=== PATIENT | male | born 1940 | race Caucasian/White ===

== ENCOUNTER → 2016-10-27 | Outpatient (CLI) | payer OTHER, MEDICAID ==
--- NOTE | 2016-10-27 13:34 | DX ---
Chest, Two Views 1142 hours October 27, 2016 History: Cough, fever, asthma , previous coronary artery bypass. 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 Comparison: January 2016. Findings: Cardiac silhouette is within normal range. Median sternotomy wires and mediastinal clips fr om prior coronary artery bypass. Left hilar mediastinal clips with elevated left hemidiaphragm and mi nimal scarring in the left lower lobe from previous left upper lobectomy. No definite evidence of def inite new pulmonary nodules. No focal pneumonia, congestive heart failure, pleural effusion, or pneum othorax. Impression: 1. Prior coronary artery bypass. 2. Prior left upper lobectomy with residual scarring in the left lower lobe and elevated left hemidia phragm. 3. No definite pneumonia or new pulmonary nodules. 4. If there is continued clinical concern, consider CT chest imaging for further evaluation.
== END ==
LOC: CIMAGING 11:28
PROVIDERS: ATTEND Family Medicine
DX: R05 Cough (principal); R50.9 Fever, unspecified; J45.909 Unspecified asthma, uncomplicated; Z95.1 Presence of aortocoronary bypass graft
CPT/HCPCS: 71020-PO

== ENCOUNTER → 2016-12-20 | Outpatient (CLI) | payer OTHER, MEDICAID | LOC: CIMAGING 12:59 | PROVIDERS: ATTEND Family Medicine | DX: M19.012 Primary osteoarthritis, left shoulder (principal) | CPT/HCPCS: 73030-PO ==

== ENCOUNTER → 2017-06-20 | Outpatient (CLI) | payer OTHER, MEDICAID | LOC: FIMAGING 10:57 | PROVIDERS: ATTEND Family Medicine | DX: M54.6 Pain in thoracic spine (principal); I25.10 Atherosclerotic heart disease of native coronary artery without angina pectoris; I77.810 Thoracic aortic ectasia; Z85.118 Personal history of other malignant neoplasm of bronchus and lung; Z95.1 Presence of aortocoronary bypass graft; Z90.2 Acquired absence of lung [part of] ==

== ENCOUNTER → 2017-07-18 | Outpatient (CLI) | payer OTHER, MEDICAID ==
[~2017-07-18] MED LIST: IOPAMIDOL (ISOVUE-300) 100 ML BTL ONE
== END ==
LOC: CIMAGING 14:10
PROVIDERS: ATTEND Specialist
DX: Z08 Encounter for follow-up examination after completed treatment for malignant neoplasm (principal); D41.4 Neoplasm of uncertain behavior of bladder; R33.9 Retention of urine, unspecified; Z90.5 Acquired absence of kidney; I71.4 Abdominal aortic aneurysm, without rupture
CPT/HCPCS: 74177; Q9967; 82565-PO

== ENCOUNTER 2017-09-10 12:58 | Emergency (ER) | payer OTHER, MEDICAID ==
[2017-09-10 13:28] VITALS: BP 154/88; PULSE 98; RESP 18; TEMP 98; O2SAT 96
[2017-09-10] MEDS ORDERED: LET GEL TOPICAL 1 EA SYR TP ONE ×2 (13:54→14:06)
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
== END 2017-09-10 14:20 | disposition home or self-care (01) ==
LOC: CED 12:58
DX: Z48.00 Encounter for change or removal of nonsurgical wound dressing (principal); E11.9 Type 2 diabetes mellitus without complications; Z79.82 Long term (current) use of aspirin; Z79.84 Long term (current) use of oral hypoglycemic drugs; Z87.891 Personal history of nicotine dependence; Z91.040 Latex allergy status

== ENCOUNTER → 2018-07-04 | Outpatient (CLI) | payer OTHER, MEDICAID | LOC: FIMAGING 12:29 | PROVIDERS: ATTEND Specialist | DX: N28.81 Hypertrophy of kidney (principal); I70.0 Atherosclerosis of aorta; M48.061 Spinal stenosis, lumbar region without neurogenic claudication; Z90.5 Acquired absence of kidney | CPT/HCPCS: 74177; Q9967; 82565-PO ==

== ENCOUNTER 2018-12-28 11:53 | Emergency (ER) | payer OTHER, MEDICAID ==
[2018-12-28 12:32] LABS: PLATELET COUNT 226 10^3/uL (150-400)
--- NOTE | 2018-12-28 14:49 | CPEKG ---
Test Reason : OPEN Blood Pressure : / mmHG Vent. Rate : 090 BPM Atrial Rate : 091 BPM P-R Int : 179 ms QRS Dur : 128 ms QT Int : 359 ms P-R-T Axes : 054 -01 077 degrees QTc Int : 440 ms Sinus rhythm Atrial premature complexes Right bundle branch block Confirmed by Ashish Mariee ([id number]) on 12/28/2018 2:49:16 PM Referred By: PHYSICIAN ED Confirmed By:Ashish Mariee
--- NOTE | 2018-12-28 15:01 | EDPHY ---
HPI/HX/ROS/PE/MDM Narrative: CHIEF COMPLAINT: Dyspnea HPI: The patient is a 78-year-old male with multiple medical problems including coronary artery disease status post CABG and lung cancer. He was brought to the emergency department by his daughter who states that over the last week he has had gradually increasing dyspnea with exertion. She states that he can go about 10 steps for getting when the and and needing to sit down. Apparently the patient's physician is aware of the fact that he has chronic anemia and has planned for an iron infusion the next few weeks. Patient states he has a mild cough but this is chronic. He denies any fever. He did have a brief episode lasting less than 10 sec of mild chest pain earlier today, approximately 4 hr ago. No leg swelling. REVIEW OF SYSTEMS: Aside from elements discussed in the HPI, a comprehensive 10-point review of systems was reviewed and is negative. PMH: Includes coronary artery disease status post CABG, lung cancer, hypertension. SOCIAL HISTORY: Lives with family. Denies drug abuse. PHYSICAL EXAM: General:Patient is alert, in no acute distress. ENT:Eyes are normal to inspection. ENT inspection normal. Neck: Normal inspection. Full range of motion. Respiratory:No respiratory distress. Breath sounds normal bilaterally. Cardiovascular: Regular rate and rhythm. Strong peripheral pulses. Normal cap refill. Abdomen:The abdomen is nontender to palpation. There are no peritoneal signs. There are normal bowel sounds. Back: Normal to inspection. No tenderness to palpation. Skin: Normal color. No rash. Warm and dry. Extremities: Normal appearance. Full range of motion. No pedal edema. Neuro: Oriented x3. Normal motor function. Normal sensory function. ED Course: EKG was ordered and interpreted by myself. Please see [employer] system for official reading. MDM: This patient presents primarily with worsening dyspnea on exertion. We performed extensive workup including troponin, BNP, chest x-ray and other labs which are essentially unrevealing. I suspect the patient's dyspnea is primarily related to his anemia and I have called Dr. Tabitha Balbuena was on-call for Dr. Morales to try and pass on message that he should be evaluated for potential transfusion or iron transfusions sooner rather than later. I had extensive discussion with the patient's daughter who is the primary caregiver regarding the fact that he did have chest pain earlier today and his history of significant coronary artery disease places him at elevated risk for cardiac event despite the fact that his troponin and EKG showed no sign of acute coronary syndrome at this time. I recommended admission to the hospital for further evaluation, but they declined. They would prefer to take the patient home and follow up with Cardiology as an outpatient. - Data Points Imaging Results: Imaging Impressions Chest X-Ray 12/28/18 12:23 Impression: 1. No evidence of cardiac decompensation or pneumonia. 2. New nodular density right lung base. Consider obtaining repeat PA film with nipple markers (with one view with arms at the side and one view with arms over the head) versus noncontrast chest CT. A message was left for Dr. Mariee at 1:09 PM. Laboratory Results: Laboratory Results 12/28/18 12:15 12/28/18 12:15 12/28/18 12/28/18 12/28/18 13:40 13:20 12:26 WBC RBC Hgb Hct MCV MCH MCHC RDW Plt Count MPV Neut % (Auto) Lymph % (Auto) Nuckolls % (Auto) Eos % (Auto) Baso % (Auto) Nucleat RBC Rel Count Absolute Neuts (auto) Absolute Lymphs (auto) Absolute Monos (auto) Absolute Eos (auto) Absolute Basos (auto) Absolute Nucleated RBC Immature Gran % Immature Gran # Sodium Potassium Chloride Carbon Dioxide Anion Gap BUN Creatinine Estimated GFR Glucose Calcium POC Troponin I NT-Pro-B Natriuret Pep 1220 pg/mL H pg/mL (0-450) Nasal Influenza A PCR NEGATIVE FOR FLU A (NEGATIVE) Nasal Influenza B PCR NEGATIVE FOR FLU B (NEGATIVE) Patient ABO/Rh O POSITIVE Antibody Screen NEGATIVE 12/28/18 12/28/18 12/28/18 12:22 12:15 12:15 WBC 6.66 10^3/uL 10^3/uL (3.80-9.50) RBC 3.48 10^6/uL L 10^6/uL (4.40-6.38) Hgb 9.0 g/dL L g/dL (13.7-17.5) Hct 30.3 % L % (40.0-51.0) MCV 87.1 fL fL (81.5-99.8) MCH 25.9 pg L pg (27.9-34.1) MCHC 29.7 g/dL L g/dL (32.4-36.7) RDW 15.1 % % (11.5-15.2) Plt Count 226 10^3/uL 10^3/uL (150-400) MPV 9.8 fL fL (8.7-11.7) Neut % (Auto) 77.0 % H % (39.3-74.2) Lymph % (Auto) 12.5 % L % (15.0-45.0) Nuckolls % (Auto) 8.0 % % (4.5-13.0) Eos % (Auto) 1.4 % % (0.6-7.6) Baso % (Auto) 0.6 % % (0.3-1.7) Nucleat RBC Rel Count 0.0 % % (0.0-0.2) Absolute Neuts (auto) 5.14 10^3/uL 10^3/uL (1.70-6.50) Absolute Lymphs (auto) 0.83 10^3/uL L 10^3/uL (1.00-3.00) Absolute Monos (auto) 0.53 10^3/uL 10^3/uL (0.30-0.80) Absolute Eos (auto) 0.09 10^3/uL 10^3/uL (0.03-0.40) Absolute Basos (auto) 0.04 10^3/uL 10^3/uL (0.02-0.10) Absolute Nucleated RBC 0.00 10^3/uL 10^3/uL (0-0.01) Immature Gran % 0.5 % % (0.0-1.1) Immature Gran # 0.03 10^3/uL 10^3/uL (0.00-0.10) Sodium 135 mEq/L mEq/L (135-145) Potassium 4.3 mEq/L mEq/L (3.5-5.2) Chloride 105 mEq/L mEq/L (97-110) Carbon Dioxide 22 mEq/l mEq/l (22-31) Anion Gap 8 mEq/L mEq/L (6-14) BUN 15 mg/dL mg/dL (7-23) Creatinine 0.8 mg/dL mg/dL (0.7-1.3) Estimated GFR > 60 Glucose 131 mg/dL H mg/dL (70-100) Calcium 9.1 mg/dL mg/dL (8.5-10.4) POC Troponin I 0.01 ng/mL ng/mL (0.00-0.08) NT-Pro-B Natriuret Pep Nasal Influenza A PCR Nasal Influenza B PCR Patient ABO/Rh Antibody Screen Point of Care Test Results: Chemistry 12/28/18 12:22 POC Troponin I 0.01 ng/mL ng/mL (0.00-0.08) General Time Seen by Provider: 12/28/18 12:43 Initial Vital Signs: Initial Vital Signs Temperature (C) 36.5 C 12/28/18 11:56 Heart Rate 96 12/28/18 11:56 Respiratory Rate 16 12/28/18 11:56 Blood Pressure 136/72 H 12/28/18 11:56 O2 Sat (%) 96 12/28/18 11:56 O2 Delivery Mode Room Air Allergies/Adverse Reactions: latex [Latex] Allergy (Mild, Verified 11/12/17 16:07) MILD RASH Home Medications: Medication Instructions Recorded Aspirin [Aspir 81] 08/19/12 Donepezil HCl [Aricept] 08/19/12 Hydrocortisone Valerate [WESTCORT] 08/19/12 Ketoconazole 2% [Nizoral Shampoo 08/19/12 (*)] Levothyroxine [Synthroid 137 mcg 08/19/12 (*)] Lovastatin 08/19/12 Nitroglycerin [Nitrostat 0.4 mg 08/19/12 (*)] Ranitidine HCl 08/19/12 Tamsulosin HCl [Flomax 0.4 MG (*)] 08/19/12 Metoprolol Tartrate 10/02/12 Budesonide/Formoterol 160/4.5 01/22/14 [Symbicort 160-4.5 Mcg Inh (*)] Enalapril Maleate [Vasotec 5 MG 01/22/14 (*)] Solifenacin Succinate [Vesicare 5 01/22/14 MG (*)] Albuterol Sulfate [Albuterol 03/29/15 Inhaler Hfa] Enalapril Maleate [Vasotec 2.5 MG 05/11/15 (*)] metFORMIN HCL [Glucophage 500 mg 05/11/15 (*)] FLUTICASONE PROPIONATE 09/25/15 Ferrous Sulfate [Ferrous Sulf 325 09/25/15 MG (*)] Pantoprazole Sodium [Protonix 40mg 09/25/15 (*)] Polyethylene Glycol 3350 [Miralax 09/25/15 17 gm (*)] Gabapentin [Neurontin 300 MG (*)] 11/12/17 Departure - Departure Disposition: Home, Routine, Self-Care Clinical Impression: Chest pain, Dyspnea Condition: Good Instructions: Dyspnea (ED) Additional Instructions: Follow-up with your senior data mining analyst and superintendent tests within 72 hours. Referrals: Nyasia Morales MD [Primary Care Provider] - As per Instructions Ashish Morales MD [Medical Doctor] - As per Instructions Ryan Olguin MD [Medical Doctor] - As per Instructions
[2018-12-28 15:20] VITALS: BP 131/81
== END 2018-12-28 15:10 | disposition home or self-care (01) ==
DX: R07.9 Chest pain, unspecified (principal); R06.00 Dyspnea, unspecified; I10 Essential (primary) hypertension; Z85.118 Personal history of other malignant neoplasm of bronchus and lung; Z95.1 Presence of aortocoronary bypass graft
CPT/HCPCS: 84484-ER

== ENCOUNTER → 2019-02-14 | Outpatient (CLI) | payer OTHER, MEDICAID | LOC: FCPNEURO 20:00 | PROVIDERS: ATTEND Psychiatry & Neurology Sleep Medicine | DX: G47.33 Obstructive sleep apnea (adult) (pediatric) (principal) ==